=== PATIENT | male | born 1970 | race Two or more races ===

== ENCOUNTER 2025-01-10 10:12 | Emergency (ER) | payer BC ==
[~2025-01-10] VITALS: Ht 177.8 cm; Wt 88.5 kg
[2025-01-10] MEDS ORDERED: METFORMIN HCL500 M4 PO (11:05)
[2025-01-10] MEDS ORDERED: FARXIGA5 MG PO (11:05)
[2025-01-10] MEDS ORDERED: CHILDREN'S ASPI81 MG (11:06)
[2025-01-10] MEDS ORDERED: ACETAMINOPHEN 500 MG GEL..CAP PO ONE (11:15)
[2025-01-10] MEDS ORDERED: GUAIFENESIN 200 MG/10 ML BLIST.PACK PO ONE (11:15)
[2025-01-10 11:53] LABS: BASO % 0.3 % (0.1-1.2); EOS # 0.01 (0.04-0.54); EOS % 0.1 % (0.7-7.0); HEMATOCRIT 43.7 % (40.1-51.0); HEMOGLOBIN 14.6 g/dL (13.7-17.5); LYMPH # 0.98 (1.18-3.74); LYMPH % 14.3 % (19.3-53.1); MEAN CORPUSCULAR HEMOGLOBIN 28.6 pg (25.6-32.2); MONO # 0.47 (0.24-0.82); MONO % 6.9 % (4.7-12.5); NEUT # 5.35 (1.56-6.13); NEUT % 78.1 % (34.0-71.1); PLATELET COUNT 176 K/uL (163-369); RED CELL DISTRIBUTION WIDTH 12.1 % (11.6-14.4)
[2025-01-10 12:07] LABS: INFLUENZA A AG POSITIVE (NEGATIVE); INFLUENZA B AG NEGATIVE (NEGATIVE)
[2025-01-10 13:03] LABS: COVID-19 AG NEGATIVE (NEGATIVE)
== END 2025-01-10 13:29 | disposition home or self-care (01) ==
LOC: ER 10:12 → EDBD 10:56 → ER 13:29
PROVIDERS: General Practice
DX: J10.1 Influenza due to other identified influenza virus with other respiratory manifestations (principal); B34.9 Viral infection, unspecified; E11.9 Type 2 diabetes mellitus without complications; Z79.84 Long term (current) use of oral hypoglycemic drugs; Z20.822 Contact with and (suspected) exposure to COVID-19